=== PATIENT | male | born 1970 | race Asian ===

== ENCOUNTER 2016-10-24 03:03 | Emergency (ER) | payer OTHER ==
[~2016-10-24] VITALS: Ht 175.3 cm; Wt 78.2 kg
[~2016-10-24 03:03] MED LIST: CETI10TA84 PO; OXYC-57 PO
[2016-10-24] MEDS ORDERED: ASPIRIN 324 MG CHEW PO STA (03:04)
--- NOTE | 2016-10-24 03:10 | EMERGENCY ROOM VISIT NOTE ---
History Report prepared by Linh: Bernardo San Under the Supervision of: Dr. Mainor Nino M.D. First contact with patient: 03:04 Chief Complaint: CHEST PAIN Stated Complaint: chest Pain History of Present Illness The patient is a 45 year old male who presents to the Emergency Room with complaints of upper chest discomfort that occurred 1 hour ago. He states that he was sitting down after work, getting ready to go home when the pain began. He rates his pain mild in severity. His pain is radiating the right lower border of his chest. He notes that he did ear Shailesh food recently and has a history of GERD. However, he states that this experience is completely different than his GERD symptoms. He then received an ECG, and it was abnormal. He denies any other abnormal symptoms at this time. He notes that he has been eating poorly recently secondary to his recent travel to the [facility]. He also drank an increased amount of wine at this time as well. 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 Source of History: patient Onset: 1 hour ago Position: chest Symptom Intensity: mild Quality: pressure Timing: constant Associated Symptoms: No SOB, No abdominal pain, No cough, No fevers Note: His pain radiates to his right lower border. Review of Systems See HPI for pertinent positives & negatives. A total of 10 systems reviewed and were otherwise negative. Past Medical & Surgical Medical Problems: (1) Dyslipidemia (2) Hypertension Surgical Problems: (1) History of facial surgery (2) Hx of colectomy Family History Patient reports no known family medical history. Social History Smoking Status: Never Smoker Smokeless Tobacco Use: No Alcohol Use: occasionally Drug Use: none Marital Status: Housing Status: lives with family Occupation Status: employed Current/Historical Medications Scheduled Cetirizine (Zyrtec), 10 MG PO DAILY Citalopram Hydrobromide (Celexa), 20 MG PO DAILY Allergies Coded Allergies: Shrimp (Verified Allergy, Severe, HIVES, 10/24/16) HIVES, ITCHY THROAT Sulfa Antibiotics (Verified Allergy, Intermediate, RASH, 10/24/16) Lactose (Verified Adverse Reaction, Mild, DIARRHEA, 10/24/16) Physical Exam Vital Signs Date Time Temp Pulse Resp B/P Pulse Ox O2 Delivery O2 Flow Rate FiO2 10/24/16 04:30 68 20 129/81 98 10/24/16 04:16 70 20 127/80 98 Room Air 10/24/16 03:23 78 10/24/16 03:17 98 Room Air 10/24/16 03:17 36.6 77 20 144/81 98 Room Air Physical Exam GENERAL: Patient is mildly anxious appearing and in mild acute distress. HEENT: No acute trauma, normocephalic atraumatic, mucous membranes moist, no nasal congestion, no scleral icterus. NECK: No stridor, no adenopathy, no meningismus, trachea is midline. LUNGS: No dyspnea. Clear to auscultation and equal bilaterally. No wheeze, no rhonchi. HEART: Regular rate and rhythm. No murmurs, rubs, gallops appreciated. ABDOMEN: Soft, nontender, bowel sounds positive, no masses appreciated, no peritonitis. BACK: No midline tenderness, no CVA tenderness EXTREMITIES: Normal motion all extremities, no cyanosis, no edema. NEUROLOGIC: Alert and oriented, no acute motor or sensory deficits, no focal weakness, cranial nerves grossly intact. SKIN: No rash, no jaundice, no diaphoresis. Medical Decision & Procedures ER Provider Diagnostic Interpretation: X ray results are stated below per my interpretation: Chest: 1 view: No infiltrate, no effusion, normal cardiac border. Laboratory Results 10/24/16 03:08 Red Blood Count 4.99, Mean Corpuscular Volume 91.4, Mean Corpuscular Hemoglobin 31.5, Mean Corpuscular Hemoglobin Concent 34.4, Mean Platelet Volume 10.0, Neutrophils (%) (Auto) 56.1, Lymphocytes (%) (Auto) 31.8, Monocytes (%) (Auto) 6.6, Eosinophils (%) (Auto) 5.1, Basophils (%) (Auto) 0.2, Neutrophils # (Auto) 4.51, Lymphocytes # (Auto) 2.56, Monocytes # (Auto) 0.53, Eosinophils # (Auto) 0.41, Basophils # (Auto) 0.02 10/24/16 03:08 Test 10/24/16 03:08 10/24/16 03:15 10/24/16 03:18 White Blood Count 8.05 K/uL (4.8-10.8) Red Blood Count 4.99 M/uL (4.7-6.1) Hemoglobin 15.7 g/dL (14.0-18.0) Hematocrit 45.6 % (42-52) Mean Corpuscular Volume 91.4 fL (80-100) Mean Corpuscular Hemoglobin 31.5 pg (25-34) Mean Corpuscular Hemoglobin Concent 34.4 g/dl (32-36) Platelet Count 302 K/uL (130-400) Mean Platelet Volume 10.0 fL (7.4-10.4) Neutrophils (%) (Auto) 56.1 % Lymphocytes (%) (Auto) 31.8 % Monocytes (%) (Auto) 6.6 % Eosinophils (%) (Auto) 5.1 % Basophils (%) (Auto) 0.2 % Neutrophils # (Auto) 4.51 K/uL (1.4-6.5) Lymphocytes # (Auto) 2.56 K/uL (1.2-3.4) Monocytes # (Auto) 0.53 K/uL (0.11-0.59) Eosinophils # (Auto) 0.41 K/uL (0-0.5) Basophils # (Auto) 0.02 K/uL (0-0.2) RDW Standard Deviation 43.5 fL (36.4-46.3) RDW Coefficient of Variation 13.1 % (11.5-14.5) Immature Granulocyte % (Auto) 0.2 % Immature Granulocyte # (Auto) 0.02 K/uL (0.00-0.02) D-Dimer < 190 ug/L FEU (0-500) Est Creatinine Clear Calc Drug Dose 77.8 ml/min Estimated GFR () 84.1 Estimated GFR (Non- 72.6 BUN/Creatinine Ratio 17.1 (10-20) Calcium Level 8.6 mg/dl (8.5-10.1) Troponin I < 0.015 ng/ml (0-0.045) Chemistry Specimen Hemolysis Bedside Troponin I 0.010 ng/ml (0-0.045) Bedside Hemoglobin 16.7 g/dl (14.0-18.0) Bedside Hematocrit 49 % (42-52) Bedside Sodium 139 mEq/L (135-144) Bedside Potassium 3.6 mEq/L (3.3-5.0) Bedside Chloride 98 mEq/L (101-112) Bedside Total CO2 27 mEq/l (24-31) Anion Gap 19.0 mmol/L (16-25) Bedside Blood Urea Nitrogen 23 mg/dl (7-18) Bedside Creatinine 1.0 mg/dl (0.6-1.3) Bedside Glucose (other) 154 mg/dl (70-99) Bedside Ionized Calcium (Karis) 1.15 mmol/l (1.12-1.32) Laboratory results as reviewed by me. Medications Administered Medications (Trade) Dose Ordered Sig/Christie Route Start Time Stop Time Status Last Admin Dose Admin Nitroglycerin (Nitrostat Tab) 0.4 mg Q5M PRN SL 10/24/16 03:15 11/23/16 03:14 10/24/16 03:22 0.4 MG Aspirin (Aspirin Chew) 324 mg NOW STAT PO 10/24/16 03:04 10/24/16 03:06 DC 10/24/16 03:04 324 MG Ketorolac Tromethamine (Toradol Inj) 30 mg NOW STAT IV 10/24/16 03:38 10/24/16 03:39 DC 10/24/16 03:50 30 MG Famotidine (Pepcid Tab) 20 mg NOW ONCE PO 10/24/16 03:45 10/24/16 03:46 DC 10/24/16 03:50 20 MG Al Hydroxide/Mg Hydroxide (Maalox Susp) 30 ml STK-MED ONCE .ROUTE 10/24/16 03:42 10/24/16 03:43 DC 10/24/16 03:49 30 ML Lidocaine HCl (Viscous Lidocaine 2% Soln) 20 ml STK-MED ONCE .ROUTE 10/24/16 03:42 10/24/16 03:43 DC 10/24/16 03:49 20 ML ECG Indication: chest pain Rate (beats per minute): 72 Rhythm: normal sinus Findings: T-wave inversion (Inferolateral), ST elevation (mild in V2) Comparison ECG Date: no prior available Change: 2nd ECG in the ER Finding: Similar findings with a rate of 79. ED Course 0304: The patient was evaluated in room B11. A complete history and physical exam was performed. Ordered Aspirin 324 mg PO. 0310: I spoke with Dr. Pinzon - Cardiology, at this time. He recommended to monitor him in the ER and do a repeat cardiac enzyme test and ECG 6 hours post symptom onset. 0315: Ordered Nitroglycerin 0.4 mg SL 0338: Ordered Gi Cocktail 24 ml PO, Toradol Inj 30 mg IV 0342: Ordered Lidocaine HCl 20 ml .ROUTE, Maalox Susp 30 ml .ROUTE 0345: Ordered Pepcid Tab 20 mg PO 0400: The patient is feeling better at this time. 0730: The patient was signed out to Dr. Bruce - [facility] [place], at the change in shifts. Medical Decision Differential: Cardiac Ischemia (STEMI, NSTEMI, Unstable Angina, etc), Aortic Dissection, Arrhythmia, Pulmonary Embolism, Pneumonia, Pneumothorax, MSK, Infectious, Pericarditis/Myocarditis, Esophageal Rupture, Gastrointestinal, amongst other pathologies entertained. 45 yr old male with history of dyslipidemia, HTN arrives with complaint of substernal chest pressure with mild pleuritic component. EKG with new lateral T wave inversions, LAFB which is new and these are concerning for possible ACS. Repeat 15 min later unchanged. I involved Dr Pinzon early in patient care and we reviewed EKG and symptoms. With negative trop and no acute STEMI will continue to monitor in ED with plan repeat EKG/Trops at 6 hours from symptom onset (~830a). Symptoms resolved with SLNTG, Toradol, GI cocktail, Pepcid. Only given single SLNTG as developed lightheadedness. Stable and feeling well over next few hours. Patient comfortable with plan and stable. With normal dimer and low risk I do not feel CT PE indicated. CXR wnl and I do not feel symptoms/findings consistent with aortic dissection. No evidence of infectious etiology. RUQ soft without evidence of cholecystitis. Pericarditis possible though not a classical EKG for this. May all be MSK though with EKG change from 10 yrs ago seems concerning. I have added on A1C given his mothers history of DMII and his mild elevation of BG. Also ordered Lipid panel as he will have not eaten in > 6 hours from morning labs. Signed out to Dr Bruce in stable condition. Consults Time Called: [phone] Consulting Physician: Dr. Pinzon - Cardiology Returned Call: [phone] We discussed the patient's case. Please see the ED course for further information. Impression Primary Impression: Substernal precordial chest pain Additional Impressions: T wave inversion in EKG LAFB (left anterior fascicular block) Scribe Attestation The scribe's documentation has been prepared under my direction and personally reviewed by me in its entirety. I confirm that the note above accurately reflects all work, treatment, procedures, and medical decision making performed by me. Departure Information Dispostion Still a Patient Patient Instructions My [facility] Problem Qualifiers
[2016-10-24] MEDS ORDERED: NITROGLYCERIN 0.4 MG SL PER TAB CHARGE SL PRN (03:15)
[2016-10-24 03:17] VITALS: TEMP 36.6; Ht 175.3 cm; Wt 78.2 kg
[2016-10-24 03:20] LABS: BASO % 0.2 %; BASO ABS # 0.02 K/uL (0-0.2); COMPLETE YES; EOS % 5.1 %; HEMATOCRIT 45.6 % (42-52); IG% 0.2 %; LYMPH % 31.8 %; LYMPH ABS # 2.56 K/uL (1.2-3.4); MEAN CELL VOLUME 91.4 fL (80-100); MEAN CORPUSCULAR HEMOGLOBIN 31.5 pg (25-34); MEAN CORPUSCULAR HGB CONC 34.4 g/dl (32-36); MONO % 6.6 %; NEUT % 56.1 %; PLATELET COUNT 302 K/uL (130-400); RED BLOOD COUNT 4.99 M/uL (4.7-6.1); WHITE BLOOD COUNT 8.05 K/uL (4.8-10.8)
[2016-10-24 03:35] LABS: ISTAT HEMOGLOBIN 16.7 g/dl (14.0-18.0); ISTAT IONIZED CALCIUM 1.15 mmol/l (1.12-1.32)
[2016-10-24] MEDS ORDERED: KETOROLAC TROMETHAMINE 30 MG/ML VIAL IV STA (03:38)
[2016-10-24] MEDS ORDERED: GI COCKTAIL PO STA (03:38)
[2016-10-24 03:42] LABS: BLOOD UREA NITROGEN 20 mg/dl (7-18); BUN/CREATININE RATIO 17.1 (10-20); CALCIUM 8.6 mg/dl (8.5-10.1); CARBON DIOXIDE 31 mmol/L (21-32); CHLORIDE 103 mmol/L (98-107); POTASSIUM 3.7 mmol/L (3.5-5.1); SODIUM 140 mmol/L (136-145)
[2016-10-24] MEDS ORDERED: ALUMINUM/MAGNESIUM SUSP 30 ML UDC ONE (03:42)
[2016-10-24] MEDS ORDERED: LIDOCAINE HCL 2% VISC SOLN 20 ML UDC ONE (03:42)
[2016-10-24] MEDS ORDERED: FAMOTIDINE 20 MG TAB PO ONE (03:45)
[2016-10-24 04:08] LABS: GLUCOSE 147 mg/dl (70-99)
[2016-10-24] MEDS ORDERED: CITA20TA9 PO (05:49)
--- NOTE | 2016-10-24 07:15 | DIAGNOSTIC IMAGING REPORT ---
CHEST ONE VIEW PORTABLE CLINICAL HISTORY: Chest pain. COMPARISON STUDY: Chest radiograph July 30, 2007. FINDINGS: Right axillary surgical clips are again noted. Lung volumes are normal. There is no evidence of pulmonary edema. No consolidation is identified. No pneumothorax or pleural effusion is noted. The cardiomediastinal silhouette is normal. IMPRESSION: No acute cardiopulmonary findings. Electronically signed by: Alexy Okeefe M.D. 10/24/2016 7:14 AM Dictated Date/Time: 10/24/2016 7:12 AM
[2016-10-24 07:51] VITALS: O2SAT 98
[2016-10-24 08:58] LABS: CHOLESTEROL 202 mg/dl (0-200); CHOLESTEROL/HDL RATIO 5.9; HDL CHOLESTEROL 34 mg/dl; LDL CHOLESTEROL CALCULATED 132 mg/dl; TRIGLYCERIDES 182 mg/dl (0-150); VERY LOW DENSITY LIPOPROT CALC 36 mg/dl
[2016-10-24 09:43] LABS: ESTIMATED AVERAGE GLUCOSE 117 mg/dl; HA1C FLAG Normal (Normal)
[2016-10-24 14:29] VITALS: BP 136/99; PULSE 67
--- NOTE | 2016-10-24 15:20 | EXERCISE STRESS ECHO ---
*NOTICE TO RECEIVING [employer]Y This information is strictly Confidential and protected under [place] law. [place] law prohibits you from making any further disclosure of this information unless further disclosure is expressly permitted by the written consent of the person to whom it pertains or is authorized by law. A general authorization for the release of medical or other information is not sufficient for this purpose. Hospital accepts no responsibility if the information is made available to any other person, INCLUDING THE PATIENT. Interpretation Summary * Name: OLENA GARCIA Study Date: 10/24/2016 10:17 AM BP: 142/96 mmHg * Patient Location: C.EDB HR: 62 * : 1970 (M/d/yyyy) Gender: Male Height: 69 in * Age: 45 yrs Ethnicity: Weight: 172 lb * Ordering Physician: Chilango Pinzon MD, [facility] * Performed By: Dina Fonseca * * Reason For Study: CHEST APIN * BSA: 1.9 m2 * Normal resting biventricular systolic function. * Mild concentric left ventricular hypertrophy. * No significant valvular abnormalities. * This was a normal stress echocardiogram. * The left ventricular ejection fraction increases normally with stress. The left ventricular end-systolic cavity size reduces post-stress (normal response). The left ventricular wall motion with stress is normal. * The stress ECG response was normal Procedure Details * ECHOEX, CPT #[id number] * ECHO DOPPLER, CPT #[id number] * ECHO COLOR FLOW, CPT #[id number] Left Ventricle * The left ventricle is normal in size. * There is mild concentric left ventricular hypertrophy. * Ejection Fraction = 60-65%. * Resting wall motion: Normal. Stress wall motion: Appropriate increase in Left ventricular systolic function and decrease in cavity size. No stress induced segmental wall motion abnormalities. Right Ventricle * The right ventricle is normal in size and function. * The right ventricular systolic function is normal as assessed by tricuspid annular plane systolic excursion (TAPSE) (normal >1.5 cm). Atria * The left atrial size is normal. * Right atrial size is normal. * No ASD detected; PFO is not assessed. Mitral Valve * The mitral valve is normal. * There is no mitral valve stenosis. * There is trace mitral regurgitation. Tricuspid Valve * The tricuspid valve is normal. * There is no tricuspid stenosis. * There is trace tricuspid regurgitation. * Right ventricular systolic pressure is normal. Aortic Valve * The aortic valve is trileaflet. * The aortic valve opens well. * Aortic stenosis is absent. * No aortic regurgitation is present. Pulmonic Valve * The pulmonic valve is not well seen, but is grossly normal. * Pulmonic stenosis is absent. * Trace pulmonic valvular regurgitation. Great Vessels * The aortic root is normal size. Pericardium * There is no pericardial effusion. Stress Parameters * NSR, LAD/LAFB, right sided conduction delay, inferolateral T wave inversions * The stress ECG response was normal * Rest heart rate was '62' BPM. * Rest blood pressure was '142/96' * Maximum heart rate achieved was 166 bpm. * Maximum heart rate was 94 % of maximum age-predicted heart rate. * Maximum blood pressure was '208/77' * Total exercise time was '8:58' * Maximum exercise MET level achieved was '10.1' METS * Maximum treadmill speed was '3.40' miles per hour. * Maximum treadmill elevation was '14.00'% grade. * Exercise was terminated due to 'fatigue' * No symptoms during exercise. * The patient exhibited a hypertensive response with stress. MMode 2D Measurements and Calculations IVSd 1.4 cm IVSs 2.2 cm LVIDd 4.2 cm LVIDs 2.8 cm LVPWd 1.4 cm LVPWs 2.1 cm IVS/LVPW 0.97 FS 34.2 % EDV(Teich) 79.2 ml ESV(Teich) 28.8 ml EF(Teich) 63.6 % EDV(cubed) 74.9 ml ESV(cubed) 21.3 ml EF(cubed) 71.6 % % IVS thick 61.7 % % LVPW thick 49.1 % LV mass(C)d 225.6 grams LV mass(C)dI 116.4 grams/m\S\2 LV mass(C)s 283.2 grams LV mass(C)sI 146.2 grams/m\S\2 CO(Teich) 3.1 l/min CI(Teich) 1.6 l/min/m\S\2 SV(Teich) 50.4 ml SI(Teich) 26.0 ml/m\S\2 CO(cubed) 3.3 l/min CI(cubed) 1.7 l/min/m\S\2 SV(cubed) 53.6 ml SI(cubed) 27.7 ml/m\S\2 Ao root diam 3.6 cm Ao root area 10.0 cm\S\2 ACS 1.4 cm LA dimension 3.8 cm asc Aorta Diam 3.1 cm LA/Ao 1.1 LVOT diam 2.0 cm LVOT area 3.1 cm\S\2 LVAd ap4 28.7 cm\S\2 LVLd ap4 7.9 cm EDV(MOD-sp4) 86.0 ml LVAs ap4 16.4 cm\S\2 LVLs ap4 6.6 cm ESV(MOD-sp4) 35.0 ml EF(MOD-sp4) 59.3 % LVAd ap2 27.6 cm\S\2 LVLd ap2 8.3 cm EDV(MOD-sp2) 79.0 ml LVAs ap2 15.2 cm\S\2 LVLs ap2 6.9 cm ESV(MOD-sp2) 30.0 ml EF(MOD-sp2) 62.0 % CO(MOD-sp4) 3.2 l/min CI(MOD-sp4) 1.6 l/min/m\S\2 SV(MOD-sp4) 51.0 ml SI(MOD-sp4) 26.3 ml/m\S\2 CO(MOD-sp2) 3.0 l/min CI(MOD-sp2) 1.6 l/min/m\S\2 SV(MOD-sp2) 49.0 ml SI(MOD-sp2) 25.3 ml/m\S\2 Doppler Measurements and Calculations MV E max michelle 86.8 cm/sec MV A max michelle 59.0 cm/sec MV E/A 1.5 MV dec time 0.23 sec Ao V2 max 144.8 cm/sec Ao max PG 8.4 mmHg Ao max PG (full) 4.3 mmHg JOSE MANUEL(V,A) 2.2 cm\S\2 JOSE MANUEL(V,D) 2.2 cm\S\2 LV V1 max PG 4.1 mmHg LV V1 max 101.4 cm/sec MR max michelle 516.2 cm/sec MR max PG 106.6 mmHg PA V2 max 60.2 cm/sec PA max PG 1.5 mmHg PI end-d michelle 116.7 cm/sec
== END 2016-10-24 14:30 | disposition home or self-care (01) ==
LOC: EDBD 03:03 → EEVIPCON 03:03 → C.EDB 03:03
DX: R07.2 Precordial pain (principal); I44.4 Left anterior fascicular block; K21.9 Gastro-esophageal reflux disease without esophagitis; E78.5 Hyperlipidemia, unspecified; I10 Essential (primary) hypertension; Z90.49 Acquired absence of other specified parts of digestive tract; Z79.899 Other long term (current) drug therapy; Z83.3 Family history of diabetes mellitus

== ENCOUNTER 2021-12-26 05:24 | Observation (INO) ==
--- NOTE | 2021-12-16 14:25 | Anesthesiology Consultation ---
Date of Service December 16, 2021 Assessment & Plan (1) Encounter for pre-operative examination: Chart Review Chart Review: Acceptable Risk for Surgery (pending preop Covid testing and DOS anesthesia evaluation ) and Patient NOT seen in Pre Admission Testing - Check BSG AM DOS Per nursing assessment 12/12/21, pt resides in [facility]. No known recent Covid positive exposures or current Covid related symptoms. Pt did test Covid positive on 10/31/21 wit home test (having cough and fatigue- symptoms have resolved). Pt is fully vaccinated for Covid. Preop Covid testing scheduled 12/22/21= will await results History Surgery Operation Date: 12/26/21 08:20 Proposed Procedures p Laparoscopic Cholecystectomy - Randall Rubi MD, FACS Height/Weight Height: 5 ft 8 in Weight: 77.111 kg Allergies Allergy/AdvReac Type Severity Reaction Status Date / Time Sulfa (Sulfonamide Allergy Unknown RASH Verified 12/12/21 13:19 Antibiotics) lactose AdvReac Unknown DIARRHEA Verified 12/12/21 13:19 Medications Home Medications Medication Instructions Recorded Confirmed Last Taken cetirizine 10 mg tablet 10 mg PO QAM 05/31/18 12/12/21 10/10/21 citalopram 20 mg tablet 20 mg PO QAM 05/31/18 12/12/21 10/10/21 atorvastatin 20 mg tablet (Lipitor) 20 mg PO QAM 09/28/21 12/12/21 10/10/21 metformin 500 mg tablet,extended 1,000 mg PO QPM 09/28/21 12/12/21 10/09/21 release 24hr Past Medical History Medical History Anxiety COVID-19 virus detected POSITIVE HOME COVID TEST 10/31/21-COUGH, FATIGUE-RECOVERED AT HOME-RESOLVED Fatty liver History of diverticulitis Hyperlipidemia Pre-diabetes Past Family History Family History Father Prostate cancer Mother Diabetes Past Surgical History Surgical History History of appendectomy History of colonoscopy History of facial surgery (~1988) Facial reconstruction - SOME LIMITED OPENING OF THE JAW Social History Smoking Status: Never smoker Do You Dip or Chew Tobacco: No Hx Alcohol Use: Yes Alcohol type: hard liquor alcohol intake frequency: a few times a month Hx Substance Use: No substance use type: does not use Lab Results Anesthesia Preop Results Results Anesthesia Widget: WBC 9.15 K/ul (4.8-10.8) 12/14/21 Hgb 15.3 g/dl (14.0-18.0) 12/14/21 Hct 44.4 % (40.1-51.0) 12/14/21 Plt 342 K/uL (130-400) 12/14/21 Na 135 mmol/L (136-145) L 12/14/21 K 4.0 mmol/L (3.5-5.1) 12/14/21 Cl 100 mmol/L (98-107) 12/14/21 CO2 26 mmol/L (21-32) 12/14/21 BUN 19 mg/dl (6-23) 12/14/21 Creat 0.98 mg/dl (0.6-1.4) 12/14/21 Glucose Level 94 mg/dl (70-99(Fasting)) 12/14/21 Testing Electrocardiogram Date: 12/15/21 Findings: + NSR @ (79bpm ) Left anterior fascicular block. T wave inversions in the inferior leads of unclear significance. Compared to EKG from August 25, 2019- inverted T waves have replaced nonspecific T wave abnormality in inferior leads, QT has shortened per cardio. (EKG from 10/24/2016 reviewed and looks similar in appearance to preop EKG- pt had subsequent negative stress test 10/24/16- discussed with Dr. Traylor- pt with risk factors of HLD and pre-DM- no physical limitations per nursing interview- patient can proceed as scheduled- will need reassessed DOS to ensure no cardiac symptoms) Stress Test Date: 10/24/16 Type: exercise (ECHO) Resting EF: 60-65% Resting LV Function: normal Resting RWMA: + none Normal stress ECHO. Stress EKG response was normal. MPHR 94%. 10.1 METS achieved . Normal resting biventricular systolic function. Mild cLVH. LVEF increases normally with stress. LV wall motion with stress is normal. Other Testing Abdominal u/s 09/12/21= Compared to previous examination, there is now evidence for for gallbladder polyps ranging in size from 4-8 mm. There is also heterogeneous echogenicity of the liver now seen with a small cyst and a few foci of low echogenicity most characteristic of fatty sparing.
[2021-12-26] MEDS ORDERED: LR 15ML/HR IV SCH (06:00)
[2021-12-26] MEDS ORDERED: cefUROXime 1,500 MG in DEXTROSE 5% 100 ML IV SCH (06:00)
[2021-12-26] MEDS ORDERED: PROPOFOL IV EMULSION 10 MG/ML 20 ML VIAL IV ONE ×2 (06:29→07:39)
[2021-12-26] MEDS ORDERED: DEXAMETHASONE SOD INJ 4 MG/ML VIAL ONE (06:29)
[2021-12-26] MEDS ORDERED: fentaNYL citrate 100 MCG/2 ML VIAL ONE ×2 (06:29)
[2021-12-26] MEDS ORDERED: ROCURONIUM BROMIDE 10 MG/ML 5 ML VIAL IV ONE (06:29)
[2021-12-26] MEDS ORDERED: ONDANSETRON INJ 2 MG/ML 2 ML VIAL ONE (06:29)
[2021-12-26] MEDS ORDERED: MIDAZOLAM HCL 1 MG/ML 2ML VIAL ONE (06:32)
[2021-12-26] MEDS ORDERED: SUGAMMADEX SODIUM 200 MG/2 ML VIAL IV ONE (06:34)
[2021-12-26] MEDS ORDERED: ATROPINE SULFATE 0.1 MG/ML 10ML SYR IV PRN (06:38)
[2021-12-26] MEDS ORDERED: ONDANSETRON INJ 2 MG/ML 2 ML VIAL IV PRN ×4 (06:38→14:40)
[2021-12-26] MEDS ORDERED: fentaNYL citrate 100 MCG/2 ML VIAL IV PRN (06:38)
[2021-12-26] MEDS ORDERED: ePHEDrine sulfate 50 MG/ML AMP IV PRN (06:38)
[2021-12-26] MEDS ORDERED: BUPIVACAINE 0.5 % 5 MG/1 ML MPF 30ML VIAL ONE (06:55)
[2021-12-26] MEDS ORDERED: PHENYLEPHRINE HCL 10 MG/ML VIAL ONE (07:27)
[2021-12-26] MEDS ORDERED: ePHEDrine sulfate 50 MG/ML AMP ONE (07:27)
[2021-12-26] MEDS ORDERED: GLYCOPYRROLATE 0.2 MG/ML VIAL ONE (07:32)
--- NOTE | 2021-12-26 07:51 | Post Operative Brief Note ---
PG Immediate Post Op with CF Date of Surgery December 26, 2021 Pre & Post Diagnosis Operation Date: 12/26/21 07:00 Pre-Op Diagnosis: Gallbladder Polyp Post-Op Diagnosis: Gallbladder Polyp, chronic cholecystitis with adhesions I identified the patient and participated in the time-out.: Yes Procedure Operation Date: 12/26/21 07:00 Actual Procedures p Laparoscopic Cholecystectomy(Not Applicable) - Randall Rubi MD, FACS Lysis of adhesions Surgeon Randall Rubi MD, FACS Post Manager Abhilash Leiva Estimated Blood Loss 5 Findings Consistent with Post-Op Diagnosis Patient had chronic adhesions to the gallbladder and significant scar tissue consistent with chronic cholecystitis I cannot palpate any stones after removal of the gallbladder, he does have a h istory of polyps Specimens Specimen Description: A. Gallbladder
[2021-12-26] MEDS ORDERED: ACETAMINOPHEN 1,000 MG/100 ML VIAL IV ONE (07:52)
[2021-12-26] MEDS ORDERED: oxyCODONE HCL IR 5 MG TAB (IMMEDIATE RELEASE) PO PRN ×2 (07:52→14:40)
[2021-12-26] MEDS ORDERED: PROMETHAZINE HCL 12.5 MG in SODIUM CHLORIDE 0.9% 50 ML IV PRN ×3 (07:52→14:40)
[2021-12-26] MEDS ORDERED: SODIUM CHLORIDE 0.9% 1000ML 1,000 ML IV SCH (08:00)
[2021-12-26] MEDS ORDERED: SUCCINYLCHOLINE CHLORIDE 20 MG/ML 10 ML VIAL IV ONE (08:08)
--- NOTE | 2021-12-26 09:11 | Operative Report (OR) ---
DATE OF OPERATION: 12/26/2021. NAME OF OPERATION: Laparoscopic cholecystectomy with lysis of adhesions. PREOPERATIVE DIAGNOSIS: Gallbladder polyps. POSTOPERATIVE DIAGNOSES: Gallbladder polyps with chronic cholecystitis and adhesions. STAFF SURGEON: Randall Rubi MD. ROCKET ASSEMBLY OPERATOR: Clarissa Leiva PA-C. ANESTHESIA: General. DESCRIPTION OF PROCEDURE: The patient was brought in the operating room, placed on the operating tab le in supine position. His abdomen was prepped and draped in the usual fashion. Pneumatic stockings and orogastric tube were placed. 0.5% plain Marcaine was used to anesthetize all incisions. My ass istant helped with prepping, draping, removal of gallbladder and closure of the wounds. Initial inci wali was made above the umbilicus, carrying dissection down to the fascia, placing a Veress needle pr oducing pneumoperitoneum. An 11 mm port placed at this level. Under visualization, three 5 mm ports were placed, one cephalad and two laterally under visualization. Gallbladder was distended. It was retracted. There were chronic adhesions to the gallbladder. These were taken down. The gallbladde r was aspirated of bile. Dissection was carried out to the sammy hepatis showing some evidence of ch ronic scar tissue consistent with chronic cholecystitis. This was also noted in the back wall when t he gallbladder was removed. Cystic duct and cystic artery were identified, clipped and transected. Then, the gallbladder dissected away from the liver bed in the usual fashion, again noting chronic sc ar tissue consistent with chronic cholecystitis. Gallbladder was placed in an Endobag. After approp riate hemostasis and irrigation, the Endobag was removed through the umbilical site. I could not pal sanchez stones. It was sent for routine pathology. The fascia at the umbilicus closed using 0 Vicryl s uture. The skin was reapproximated using subcuticular 4-0 Monocryl with Dermabond. The patient was transferred to recovery room in stable condition. Job ID: [id number]
--- NOTE | 2021-12-26 09:24 | Anesthesiology Progress Note ---
Date of Service December 26, 2021 Anesthesia Post Procedure Vital Signs Vital Signs: Temp Pulse Pulse Resp BP Pulse Ox O2 Del Method 12/26/21 08:45 98.1 F 91 H 15 117/87 96 Room Air 12/26/21 08:35 95 H 12 126/90 99 Oxymask 12/26/21 08:25 98 H 16 132/95 94 Oxymask 12/26/21 08:19 97.3 F L 105 H 12 129/94 93 Oxymask 12/26/21 05:38 97.7 F 72 20 135/94 97 Room Air O2 Flow Rate 12/26/21 08:45 12/26/21 08:35 6 12/26/21 08:25 6 12/26/21 08:19 6 12/26/21 05:38 Pain Intensity Abdomen: Pain Intensity: 2 Transfer of Care Handoff Completed per policy Notes Mental Status: alert / awake / arousable and participated in evaluation Patient Amnestic to Procedure: Yes Nausea / Vomiting: adequately controlled Pain: adequately controlled Airway Patency, RR, SpO2: stable & adequate BP & HR: stable & adequate Hydration State: stable & adequate Anesthetic Complications: no major complications apparent and Pt Satisfied with anesthetic care
--- NOTE | 2021-12-26 10:04 | XRay Report ---
XR chest 1V portable HISTORY: hypoxia COMPARISON: Chest 08/25/2019. FINDINGS: No pneumothorax. No pleural effusions. There are surgical clips within the right lateral ch est wall. No fractures within the visualized osseous structures. The heart is normal in size. There i s mild central pulmonary vascular congestion without overt edema. IMPRESSION: Mild central pulmonary vascular congestion without overt edema. ACT 112: Negative or not required by law. Electronically signed by: Eze Kearns M.D. 12/26/2021 10:02 AM
[2021-12-26] MEDS ORDERED: GLUCOSE 10 TAB/TUBE PO PRN (10:34)
[2021-12-26] MEDS ORDERED: CARBOHYDRATES FOR HYPOGLYCEMIA PO PRN (10:34)
[2021-12-26] MEDS ORDERED: GLUCOSE 40% GEL 15 GM TUBE PO PRN (10:34)
[2021-12-26] MEDS ORDERED: DEXTROSE 50% 50 ML SYRINGE IV PRN (10:34)
[2021-12-26] MEDS ORDERED: GLUCAGON FOR INJ 1 MG VIAL SQ PRN (10:34)
[2021-12-26] MEDS ORDERED: HYDROCODONE/ACETAMOPHEN 5/325MG TAB PO PRN (10:36)
[2021-12-26] MEDS ORDERED: HYDROmorphone INJ 0.5 MG/0.5 ML SYR IV PRN ×2 (10:36→14:40)
[2021-12-26] MEDS ORDERED: IBUPROFEN 600 MG TAB PO PRN ×2 (10:36→14:40)
[2021-12-26] MEDS ORDERED: ACETAMINOPHEN 325 MG TAB PO PRN ×2 (10:36→14:40)
--- NOTE | 2021-12-26 10:41 | Hospitalist Consultation ---
Date of Consultation December 26, 2021 Assessment & Plan (1) Hypoxia: (2) Hemoptysis, unspecified: -Consulted by general surgery s/p lap clyde for acute onset of hypoxia with O2 sats down to mid 80s, hemoptysis with gretchen blood into tissue -CXR reviewed showing mild central pulmonary congestion,? Flash pulmonary edema status post surgical procedure - will give Lasix 40 mg IV x 1 and stop all IV fluids. -Repeat CXR with a.m. labs -Currently on 2 L with maintaining sats at 96% -Check H&H Q6h x 3 - Hemoptysis likely from intubation during procedure - check CBC, CMP, INR, A1c, lipid panel now, follow cmp and cbc with am labs -Diet and bowel regimen per the primary team (3) Hypertension: - not on antihypertensive medication - BP is stable, HR slightly elevated but is coming down in the 90s (4) Dyslipidemia: - Check lipid panel, continue statin therapy (5) Gallbladder polyp: - sp lap clyde surgery as above - Per the primary team (6) DM II (diabetes mellitus, type II), controlled: - Last A1C from outpt lab review 08/2021 in Epic of 6.0, rechecking - holding metformin for now - Continue ISS with accuchecks achs DVT ppx: teds, scds, CODE: FULL Dispo: From home, remain in the hospital overnight, possible go home tomorrow. Thank you for involving us in the care of Dr. Clements. Please do not hesitate to call with questions or concerns. At this time medicine service will follow along. Supervising Physician Co-Signing Physician Notes Attending addendum: The patient was seen and examined in [facility] He is a status post laparoscopic cholecystectomy Noted to have desaturation and hemoptysis following the procedure Denies any chest pain and/or palpitation and has been requiring 2 L to maintain saturation Complains to have abdominal discomfort and pain On examination Mild distress at rest mainly due to abdominal discomfort but denies any shortness of breath Noted to be tachycardic at 108/min otherwise hemodynamically stable Chestbibasilar crackles and right midlung crackles as well HeartS1, S2 regular Abdomenmildly distended Extremitiesno edema His preadmission labs reviewed, EKG and chest x-ray reviewed Has mild congestive changes on her chest x-ray We will check hemoglobin and PRP Hemoptysis is likely secondary to intubation but will monitor while in the hospital Received 40 of Lasix intravenously for congestive changes Will observe overnight Agree with assessment and plan as outlined above by Sasha funk History of Present Illness Reason for Consultation: Hemoptysis, hypoxia Requesting Physician: Dr. Rubi Attending Physician: Randall Rubi MD, FACS History of Present Illness This is a 51-year-old male with PMHx of HTN, HLD, LISA, DM II and gallbladder polpys who presented to the OR today with Dr. Rubi for scheduled laproscopic cholecystectomy with lysis of adhesions. He tolerated the procedure well without any difficulty however afterwards the patient complained of having increased shortness of breath, felt like "lungs were filling up", and that he was having increased in secretions. He became hypoxic with O2 sats in the mid 80s where he was required to be placed on 3 to 4 L of oxygen to maintain his O2 sats. He was coughing up gretchen hemoptysis into a few tissues, but otherwise could not quantify it. Denies any obvious clots or dark red blood. Patient is improved at the time of my visit to 96% on 2 L of oxygen. He reports feeling well prior to surgical procedure, eating and drinking well, moving his bowels. He did not take any of his routine morning medications today due to surgical procedure. Denies any previous lung history or hemoptysis in the past. He does not wear any supplemental O2 at baseline or at night. Allergies Allergy/AdvReac Type Severity Reaction Status Date / Time Sulfa (Sulfonamide Allergy Unknown RASH Verified 12/26/21 05:36 Antibiotics) lactose AdvReac Unknown DIARRHEA Verified 12/26/21 05:36 Home Medications Medication Instructions Recorded Confirmed Type cetirizine 10 mg tablet 10 mg PO QAM 05/31/18 12/26/21 History citalopram 20 mg tablet 20 mg PO QAM 05/31/18 12/26/21 History atorvastatin 20 mg tablet (Lipitor) 20 mg PO QAM 09/28/21 12/26/21 History metformin 500 mg tablet,extended 1,000 mg PO QPM 09/28/21 12/26/21 History release 24hr hydrocodone 5 mg-acetaminophen 325 1 tab PO Q4H PRN pain #30 tabs 12/26/21 12/26/21 Rx mg tablet Patient History Medical History (Updated 12/26/21 @ 10:58 by Sasha Garcia PA-C) Anxiety COVID-19 virus detected POSITIVE HOME COVID TEST 10/31/21-COUGH, FATIGUE-RECOVERED AT HOME-RESOLVED Fatty liver History of diverticulitis Hyperlipidemia Pre-diabetes Surgical History (Updated 12/26/21 @ 09:35 by Melanie Bains, OVIDIO) History of appendectomy History of colonoscopy History of facial surgery (~1988) Facial reconstruction - SOME LIMITED OPENING OF THE JAW Hx laparoscopic cholecystectomy (12/26/21) Laparoscopic cholecystectomy with lysis of adhesions. Dr. 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 Required: No Beliefs That Will Affect Care: None Current Living Situation: Significant Other Current Living Situation Comment: [facility] current occupational status: employed Other Information That Helps Us Care for You: No Feels Safe at Home: Yes Safety Concerns: Feels Safe At This Time Assistive Devices: Glasses Review of Systems Review of Systems: Constitutional: No fever, sweats or chills Eyes: No diplopia, no worsening or blurred vision ENT: normal hearing, no trouble swallowing Respiratory: + cough, sputum with hemoptysis, no dyspnea at rest or on exertion Cardiovascular: No chest pain, tightness or palpitations Abdomen: No pain, nausea, vomiting, diarrhea or constipation Musculoskeletal: No joint pain, calf pain, swelling Neurologic: No weakness, numbness/tingling, or balance problems Psychiatric: No anxiety or depression Skin: No rash or itch Physical Exam Physical Exam: General: awake, alert, no apparent distress Head: Normocephalic, atraumatic ENT: PERRL, EOMI, no pharyngeal exudate, mucous membranes moist Chest: on 2 L via NC, O2 sats at 96% at bedside, + crackles at bases bilaterally, moreso in the right compared to the left, no wheezes or rales Cardiac: Regular rate and rhythm, heart rate in the 90s, no murmur, no JVD, normal peripheral pulses, good capillary refill Abdominal: S/p lap clyde, +distended Extremities: Normal inspection, no peripheral edema or erythema, calfs nontender to palpation Psych: Normal mood and affect Neuro: AAO x 3, strength intact bilaterally and rated 5/5, no motor deficits, speech is clear, no peripheral sensory deficits Results & Data Results & Data ([facility]) Vital Signs (Past 12 Hours) Vital Signs Temp Pulse Pulse Resp BP Pulse Ox O2 Del Method 12/26/21 10:00 105 H 16 126/81 97 Nasal Cannula 12/26/21 09:30 36.9 C 98 H 16 128/89 99 Nasal Cannula 12/26/21 09:00 36.8 C 89 16 129/85 96 Nasal Cannula 12/26/21 08:45 36.7 C 91 H 15 117/87 96 Room Air 12/26/21 08:35 95 H 12 126/90 99 Oxymask 12/26/21 08:25 98 H 16 132/95 94 Oxymask 12/26/21 08:19 36.3 C L 105 H 12 129/94 93 Oxymask 12/26/21 05:38 36.5 C 72 20 135/94 97 Room Air O2 Flow Rate 12/26/21 10:00 3 12/26/21 09:30 3 12/26/21 09:00 3 12/26/21 08:45 12/26/21 08:35 6 12/26/21 08:25 6 12/26/21 08:19 6 12/26/21 05:38 Laboratory Results 12/26/21 05:38 POC Glucose 110 H Diagnostic Findings Chest X-Ray 12/26/21 09:35 XR chest 1V portable HISTORY: hypoxia COMPARISON: Chest 08/25/2019. FINDINGS: No pneumothorax. No pleural effusions. There are surgical clips within the right lateral chest wall. No fractures within the visualized osseous structures. The heart is normal in size. There is mild central pulmonary vascular congestion without overt edema. IMPRESSION: Mild central pulmonary vascular congestion without overt edema. ACT 112: Negative or not required by law. Electronically signed by: Eze Kearns M.D. 12/26/2021 10:02 AM
[2021-12-26] MEDS ORDERED: LACTATED RINGER'S 1,000 ML IV SCH (10:45)
--- NOTE | 2021-12-26 10:46 | Communication Note ---
Date of Service: December 26, 2021 I re-evaluated the patient in Phase 2. The patient was coughing up light red sputum. The patient's respirations were normal, but he stated having secretions in the back of his throat. The patient was placed on 2L NC and given an incentive spirometer. A CXR was ordered showing mild central pulmonary vascular congestion without overt edema. I spoke to the patient about the possibility of negative pressure pulmonary edema. Dr. Rubi was also present. The patient will be admitted and followed by a hospitalist for further care. The patient was understanding.
--- NOTE | 2021-12-26 10:57 | Surgery Progress Note ---
Date of Service December 26, 2021 Assessment & Plan (1) Hypoxia: Plan: Patient status post laparoscopic cholecystectomy In the recovery area patient was having some coughing with hemoptysis and showed some signs of hypoxia He was placed on oxygen via nasal cannula which improved his oxygenation He had some mild EKG changes-chest x-ray was ordered There is possibility the patient did have some coughing against the endotracheal tube causing some inflammation Secondary to negative pressure I did asked the medical team to see the patient and follow him with us We will admit him to the PCU for monitoring Results & Data ([facility]) Vital Signs (Past 12 Hours) Vital Signs Temp Pulse Pulse Resp BP Pulse Ox O2 Del Method 12/26/21 10:00 105 H 16 126/81 97 Nasal Cannula 12/26/21 09:30 36.9 C 98 H 16 128/89 99 Nasal Cannula 12/26/21 09:00 36.8 C 89 16 129/85 96 Nasal Cannula 12/26/21 08:45 36.7 C 91 H 15 117/87 96 Room Air 12/26/21 08:35 95 H 12 126/90 99 Oxymask 12/26/21 08:25 98 H 16 132/95 94 Oxymask 12/26/21 08:19 36.3 C L 105 H 12 129/94 93 Oxymask 12/26/21 05:38 36.5 C 72 20 135/94 97 Room Air O2 Flow Rate 12/26/21 10:00 3 12/26/21 09:30 3 12/26/21 09:00 3 12/26/21 08:45 12/26/21 08:35 6 12/26/21 08:25 6 12/26/21 08:19 6 12/26/21 05:38 PG Care Time/CCT Total # of Minutes Spent Total Time Spent with Patient: Total time spent is greater than 50% in coordination of care (as documented) at patient's floor/unit and/or counseling patient: Coding Level of Care Code None Diagnoses Hypoxia R09.02
[2021-12-26] MEDS ORDERED: FUROSEMIDE 40 MG/4 ML VIAL IV ONE ×2 (11:03→14:04)
[2021-12-26 13:28] LABS: Hematocrit (blood only) 43.3 % (40.1-51.0); Hemoglobin 14.6 g/dl (14.0-18.0); Mean Corpuscular Hemoglobin 30.7 pg (25.0-34.0); Mean Corpuscular Hgb Conc 33.7 g/dL (32.0-36.0); Mean Corpuscular Volume 91.2 fL (80.0-100.0); Mean Platelet Volume 10.1 fL (9.4-12.4); Platelet Count 283 K/uL (130-400); RDW Coefficient of Variation 12.2 % (11.5-14.5); RDW Standard Deviation 40.9 fL (36.4-46.3); Red Blood Count 4.75 M/uL (4.63-6.08); White Blood Count 14.87 K/ul (4.8-10.8)
[2021-12-26 13:35] LABS: Prothrombin Time 10.5 Seconds (9.0-12.0)
[2021-12-26 13:52] LABS: Estimated Average Glucose 126 mg/dl
[2021-12-26] MEDS ORDERED: SODIUM CHLORIDE 0.9% 500 ML IV SCH (14:40)
[2021-12-26 14:59] LABS: Alanine Aminotransferase 41 U/L (7-52); Albumin Globulin Ratio 1.6 (0.9-2); Albumin Level 4.2 gm/dl (3.4-5.0); Alkaline Phosphatase 43 U/L (34-104); Anion Gap 9 (3-11); BUN Creatinine Ratio 13.3 (10-20); Bilirubin,Total 0.6 mg/dl (0.2-1.0); Blood Urea Nitrogen 13 mg/dl (6-23); Calcium 8.8 mg/dl (8.5-10.1); Carbon Dioxide 25 mmol/L (21-32); Chloride 100 mmol/L (98-107); Chol HDL Ratio 3.8 (0-5); Cholesterol 157 mg/dl (0-200); Creatinine Clr Calc Pharmacy 89.2 ml/min; Est GFR (Non-African American) 88.9 ml/min; Globulin 2.7 gm/dl (2.5-4.0); Glucose 127 mg/dl (70-99(Fasting)); HDL Cholesterol 41 mg/dl; LDL Cholesterol Calculated 83 mg/dl; Sodium 134 mmol/L (136-145); Total Protein 6.9 gm/dl (6.0-8.3); Triglycerides 165 mg/dl (0-150); VLDL Cholesterol 33 mg/dl (0-30)
[2021-12-26] MEDS: INSULIN ASPART PER UNIT SC SCH ×3 (15:31→21:13)
[2021-12-26 15:40] LABS: Potassium 4.4 mmol/L (3.5-5.1)
[2021-12-26 16:24] LABS: Hematocrit (blood only) 45.8 % (40.1-51.0); Hemoglobin 15.6 g/dl (14.0-18.0)
[2021-12-26] MEDS ORDERED: HEPARIN SOD 5,000 UNIT/0.5 ML VIAL SQ SCH (21:00)
[2021-12-26] MEDS ORDERED: DOCUSATE SODIUM/SENNA 50/8.6MG TAB PO SCH (21:00)
[2021-12-26] MEDS: DOCUSATE SODIUM/SENNA 50/8.6MG TAB PO SCH (21:13)
[2021-12-26 22:45] LABS: Hematocrit (blood only) 45.8 % (40.1-51.0); Hemoglobin 15.7 g/dl (14.0-18.0)
--- NOTE | 2021-12-27 06:52 | Surgery Progress Note ---
Date of Service December 27, 2021 Assessment & Plan (1) Hypoxia: Plan: Status post laparoscopic cholecystectomy Patient in bed appears to be normal on room air Inquiring about his EKG and also whether a troponin was drawn Will order the troponin which may be mildly elevated because of his surgery Echo cardiogram report is pending Will check with the medical team this morning Appears to be surgically stable, hopefully can discharge later today depending on his cardiopulmonary status (2) Hx laparoscopic cholecystectomy: Admission and Anticipated Discharge Date Admission Date: December 26, 2021 Results & Data ([facility]) Vital Signs (Past 12 Hours) Vital Signs Temp Pulse Pulse Resp BP Pulse Ox O2 Del Method 12/26/21 23:47 106 H 12/26/21 23:32 37.1 C 115 H 16 160/93 H 92 12/26/21 21:27 Nasal Cannula 12/26/21 19:00 36.8 C 109 H 16 145/92 H 96 O2 Flow Rate 12/26/21 23:47 12/26/21 23:32 12/26/21 21:27 2 12/26/21 19:00 PG Care Time/CCT Total # of Minutes Spent Total Time Spent with Patient: Total time spent is greater than 50% in coordination of care (as documented) at patient's floor/unit and/or counseling patient: Coding Level of Care Code None Diagnoses Hypoxia R09.02 Hx laparoscopic cholecystectomy Z90.49
[2021-12-27 07:28] LABS: Hematocrit (blood only) 42.7 % (40.1-51.0); Hemoglobin 14.6 g/dl (14.0-18.0); Mean Corpuscular Hemoglobin 30.3 pg (25.0-34.0); Mean Corpuscular Hgb Conc 34.2 g/dL (32.0-36.0); Mean Corpuscular Volume 88.6 fL (80.0-100.0); Mean Platelet Volume 9.8 fL (9.4-12.4); Platelet Count 324 K/uL (130-400); RDW Coefficient of Variation 12.4 % (11.5-14.5); RDW Standard Deviation 40.8 fL (36.4-46.3); Red Blood Count 4.82 M/uL (4.63-6.08); White Blood Count 13.72 K/ul (4.8-10.8)
--- NOTE | 2021-12-27 07:30 | XRay Report ---
XR chest 1V portable CLINICAL HISTORY: hypoxia, hemoptysis COMPARISON STUDY: Chest radiograph December 26, 2021. FINDINGS: Lung volumes are normal. Lungs are clear. There is no pneumothorax or pleural effusion. Car diac size is normal. Mediastinal contours are normal. There is no evidence for pulmonary edema. Pulmo nary vascular congestion has resolved. Right axillary surgical clips are incidentally noted. IMPRESSION: No acute cardiopulmonary findings. ACT 112: Negative or not required by law. Electronically signed by: Alexy Okeefe M.D. 12/27/2021 7:29 AM
[2021-12-27 07:52] LABS: Albumin Globulin Ratio 1.6 (0.9-2); Albumin Level 4.6 gm/dl (3.4-5.0); BUN Creatinine Ratio 15.7 (10-20); Bilirubin,Total 0.8 mg/dl (0.2-1.0); Calcium 9.4 mg/dl (8.5-10.1); Creatinine Clr Calc Pharmacy 85.7 ml/min; Est GFR (African American) 98.2 ml/min; Est GFR (Non-African American) 84.7 ml/min; Globulin 2.8 gm/dl (2.5-4.0); Potassium 3.7 mmol/L (3.5-5.1); Total Protein 7.4 gm/dl (6.0-8.3)
[2021-12-27] MEDS: DOCUSATE SODIUM/SENNA 50/8.6MG TAB PO SCH (08:06)
[2021-12-27] MEDS: INSULIN ASPART PER UNIT SC SCH (08:10)
[2021-12-27] MEDS ORDERED: HEPARIN SOD 5,000 UNIT/0.5 ML VIAL SQ SCH (09:00)
--- NOTE | 2021-12-27 12:21 | Electrocardiogram Report ---
Test Reason : Blood Pressure : / mmHG Vent. Rate : 090 BPM Atrial Rate : 090 BPM P-R Int : 154 ms QRS Dur : 090 ms QT Int : 354 ms P-R-T Axes : 040 -73 -24 degrees QTc Int : 433 ms Normal sinus rhythm Left anterior fascicular block Nonspecific T wave abnormality Inferior leads Nonspecific T wave abnormality Anterolateral leads Abnormal ECG When compared with ECG of 15-DEC-2021 15:52, Nonspecific T wave abnormality Anterolateral leads now present Confirmed by Reji Shah ([id number]) on 12/27/2021 12:21:04 PM Referred By: Randall Rubi Confirmed By:Reji Shah
--- NOTE | 2021-12-27 12:35 | Electrocardiogram Report ---
Test Reason : Blood Pressure : / mmHG Vent. Rate : 074 BPM Atrial Rate : 074 BPM P-R Int : 160 ms QRS Dur : 090 ms QT Int : 380 ms P-R-T Axes : 055 -42 -21 degrees QTc Int : 421 ms Normal sinus rhythm Left axis deviation Nonspecific T wave abnormality Inferior leads Nonspecific T wave abnormality Anterior leads Abnormal ECG When compared with ECG of 26-DEC-2021 09:52, No significant change was found Confirmed by Reji Shah ([id number]) on 12/27/2021 12:35:37 PM Referred By: Randall Rubi Confirmed By:Reji Shah
--- NOTE | 2021-12-27 16:39 | Hospitalist Progress Note ---
Date of Service December 27, 2021 Assessment & Plan (1) Hypoxia: Plan: Resolved. On room air since last night. CXR this am clear. (2) Hemoptysis, unspecified: Plan: - Resolved. H&H stable, CXR clear. (3) Hypertension: Plan: - not on antihypertensive medication. reviewed EKG, echo, CXR and labs. - recommend follow up with PCP for discussion about antihypertensive initiation (4) Dyslipidemia: Plan: on statin (5) Gallbladder polyp: Plan: - sp lap clyde surgery per primary team (6) DM II (diabetes mellitus, type II), controlled: Plan: resume metformin at discharge Plan Dispo per primary team. Stable from hospitalist perspective. 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 He feels fine. Pain is controlled. Tolerating diet without issues. No N/V. Passed gas. Voiding without issues. Discussed about his EKG, echo and trop results. Physical Exam Physical Exam: General: Sitting comfortably in bed, not in distress, on room air HEENT: EOMI, BRIANNE, MMM Chest: Clear breath sounds bilaterally, no wheezes or crackles CVS: Regular rate and rhythm, normal heart sounds, no murmur Abdomen: Soft, non tender, not distended, normal bowel sounds Neuro: Awake, alert, oriented, conversing well, non focal Extremities: No cyanosis, clubbing or edema Results & Data Results & Data ([facility]) Vital Signs (Past 12 Hours) Vital Signs Temp Pulse Pulse Resp BP Pulse Ox O2 Del Method 12/27/21 11:06 37.1 C 83 18 154/102 H 96 12/27/21 07:45 Room Air 12/27/21 08:00 76 12/27/21 07:42 37.1 C 83 18 154/102 H 96 Room Air Laboratory Results Short CBC 12/26/21 12/27/21 Range/Units 22:29 06:50 WBC 13.72 H (4.8-10.8) K/ul Hgb 15.7 14.6 (14.0-18.0) g/dl Hct 45.8 42.7 (40.1-51.0) % Plt Count 324 (130-400) K/uL [facility] 12/27/21 06:50 Sodium 135 L Potassium 3.7 Chloride 98 Carbon Dioxide 27 BUN 16 Creatinine 1.02 Glucose 118 H Calcium 9.4 Liver Function 12/27/21 Range/Units 06:50 Total Bilirubin 0.8 (0.2-1.0) mg/dl AST 28 (13-39) U/L ALT 46 (7-52) U/L Alkaline Phosphatase 52 (34-104) U/L Albumin 4.6 (3.4-5.0) gm/dl Diagnostic Findings Chest X-Ray 12/27/21 08:00 XR chest 1V portable CLINICAL HISTORY: hypoxia, hemoptysis COMPARISON STUDY: Chest radiograph December 26, 2021. FINDINGS: Lung volumes are normal. Lungs are clear. There is no pneumothorax or pleural effusion. Cardiac size is normal. Mediastinal contours are normal. There is no evidence for pulmonary edema. Pulmonary vascular congestion has resolved. Right axillary surgical clips are incidentally noted. IMPRESSION: No acute cardiopulmonary findings. ACT 112: Negative or not required by law. Electronically signed by: Alexy Okeefe M.D. 12/27/2021 7:29 AM
--- NOTE | 2021-12-29 13:13 | Discharge Summary ---
Date of Service December 27, 2021 Principal Diagnosis gallbladder polyp hx laparoscopic cholecystectomy Discharge Exam awake/alert, no distress Respiratory saturating well on room air Gastrointestinal (Abdomen) Inspection/Auscultation: + abdominal surgical incision (c/d/i with dermabond overtop, no signs of infection) Percussion/Palpation: abdomen soft Discharge Data Allergies Allergy/AdvReac Type Severity Reaction Status Date / Time Sulfa (Sulfonamide Allergy Unknown RASH Verified 12/26/21 05:36 Antibiotics) lactose AdvReac Unknown DIARRHEA Verified 12/26/21 05:36 Consultations 12/26/21 09:48 Consult Hospitalist Stat 12/26/21 10:54 Consult Hospitalist Stat Procedures Performed Operation Date: 12/26/21 07:00 Actual Procedures p Laparoscopic Cholecystectomy(Not Applicable) - Randall Rubi MD, [facility] Course (1) Hx laparoscopic cholecystectomy: This is a 51y M with a history of gallbladder polyps who presented to the [facility] on 12/26/21 for an electively scheduled laparoscopic cholecystectomy. The patient tolerated the procedure well, see op note for full details. In the PACU the patient experienced some hypoxia requiring supplemental O2 along with some hemoptysis. A CXR was obtained showing some mild pulmonary congestion with no overt edema. The decision was made to admit the patient under the surgical service and the hospitalists were consulted for their assistance. He was given some IV lasix and IVF discontinued. An echo was obtained that did not reveal any pulmonary HTN with a normal EF. EKGs and troponin's obtained. No further cardiopulmonary workup was indicated by hospitalists. Post operatively the roslyn ent's diet was advanced as tolerated. Pain controlled with prn medications. On POD#1 the patient was weaned to room air. CXR obtained was without any acute findings. Diet tolerated, pain controlled, incisions c/d/i. Post op Hbg was stable. He was deemed stable for discharge to home with close follow up with his PCP for blood pressure management as well as Dr. Rubi within 1-2 weeks for a post op check. (2) Gallbladder polyp: Total Time Total Time Spent Total Time Spent (In Minutes): 10 Discharge Plan Discharge Items Patient Disposition: Home - Self-Care Reason For Visit: HYPOXIA Discharge Diagnosis: laparoscopic cholecystectomy , chronic cholecystitis Activity: Per Instructions section Activity Comment: light activity for 4 weeks Lifting: No more than 10 pounds Bathing Comment: may shower starting 12/27/21; no soaking in tubs/pools Sexual Activity: When tolerated Exercise/Sports: Wait until after follow-up appointment Exercise Comment: wait 4 weeks Driving/Machine Use: no driving while taking any narcotics for pain Non-emergency contact: Surgeon Call non-emergency contact if: you have any medication questions, your symptoms worsen, your pain is not controlled, your pain is concerning for you, you have a fever, your temperature is above 101.5, your wound has increased redness, your wound has increased drainage and your wound pain has increased Follow-up/Referrals: Randall Rubi MD, FACS [Physician] - Gregor Mcdonough MD [Primary Care Provider] - (Please follow up with your PCP as an outpatient to discuss the results of your hospitalization and for blood pressure management) Diet: Regular Addtl Attending Provider Instructions: SPECIAL CARE INSTRUCTIONS: * Cover incisions and change daily for comfort/drainage. May leave uncovered with Dermabond * May use ibuprofen for pain as tolerated. * Expect some swelling and bruising. Call your doctor if: * Temperature above 101 degrees * Pain not relieved by pain medicine ordered * There is increased drainage or redness from any incision * You have any unanswered questions or concerns [phone]. FOLLOW UP VISIT: If not already scheduled, please call the office for a follow-up visit. For 2 weeksno sutures to remove OFFICE PHONE NUMBER: Dr. Rubi Office You may use your incentive spirometer over the next few days post operatively to help keep your lungs expanded Pending Studies at Discharge: Yes Studies:: surgical pathology Stand-Alone Forms: My [facility] Medications and DC Order Prescriptions: New hydrocodone-acetaminophen 5-325 mg tablet 1 tab PO Q4H PRN (Reason: pain) Qty: 30 0RF Rx Instructions: For severe pain you may take 2 tablets but not more than 6 tablets in a single day Continued atorvastatin [Lipitor] 20 mg tablet 20 mg PO QAM metformin 500 mg tablet extended release 24hr 1,000 mg PO QPM cetirizine 10 mg Tablet 10 mg PO QAM citalopram 20 mg tablet 20 mg PO QAM Discharge Orders: Discharge Order (Routine); Ordered 12/27/21 Ordered By: Clarissa Stockton/Other Patient Handouts: Managing Type 2 Diabetes Admission Data Admit Date/Time: 12/26/21 10:54 Attending Provider: Randall Rubi Admit Provider: Randall Rubi Primary Care Provider: Gregor Mcdonough Other Providers: Ness Ku I. ; Maribell Marroquin ; Karine Ron ; Emelina Edmonds ; Matti Ashton ; Marjan Armenta ; Tracey Mcintyre I. ; Sasha Garcia ; Ashkan Francis ; Andrew Julio ; Alex Blakely ; Rodney Portillo ; Kenzie Albarran ; Karla Allison ; Baljinder Castellanos ; Valentin Urban ; Kristopher Lara ; Demi Marks ; Eleni Kat ; Britney Prado ; Loretta Loja ; Cory Lai ; Dat Middleton ; Marcial Aaron ; Kristel Ruiz Other Interventions: Discharge Summary Assessment (RN) Last Done: 12/27/21 11:06 Coding Level of Care Code D/C DAY MANAGEMENT <30 MINS Diagnoses Hx laparoscopic cholecystectomy Z90.49 Gallbladder polyp K82.4
== END 2021-12-27 11:58 | disposition home or self-care (01) ==
LOC: ASU 05:24 → INTOOBSV 10:54 → 2E 10:54